=== PATIENT | male | born 1985 | race African-American/Black ===

== ENCOUNTER 2017-04-19 00:59 | Emergency (ER) | payer OTHER ==
[~2017-04-19] VITALS: Ht 177.8 cm; Wt 79.4 kg
--- NOTE | ~2017-04-19 | CR230 ---
[facility] A Service of [facility] & [facility] / [facility] RADIOLOGY TEXT RESULTS PATIENT: DAMARIS TRAVIS LOCATION: [facility] : 83 UNIT #: [id number] AGE: [address]: Kain Treviño DO SEX: M ORDER DR: [id number] [facility] [address] [place], [place] [address] [id number] MR#: [id number] Acc #: [id number] NAME: DAMARIS TRAVIS : 1985 SEX: M STUDY DATE/TIME: 04/19/2017 02:07 UNIT: [facility] ROOM: STUDY DESCRIPTION: CR Shoulder Min 2 View Rt Attending Physician: Kain Treviño D.O. Ordering Physician: Faraz Kaufman M.D. Primary Care Physician: No Primary Care Physician MEDICAL IMAGING REPORT This report is preliminary unless electronic signature is present EXAM Right shoulder, 04/19 at 02:07. INDICATIONS Shoulder pain and tingling after hearing a popping sound yesterday. FINDINGS Three views of the right shoulder were obtained. There is no fracture or dislocation. There is no AC joint separation. IMPRESSION Normal right shoulder. Dictated by... Rizwan Salazar Jr., M.D. THIS IS AN ELECTRONICALLY VERIFIED REPORT Rizwan Salazar Jr., M.D. at 04/22/2017 7:13 AM IGOR/roberto carlos TD: 04/19/2017 09:48 JOB #: [id number] MEDICAL IMAGING REPORT Page 1 of 1 COPY
[~2017-04-19 00:59] MED LIST: VIBRAMYCIN100 M1 PO
== END 2017-04-19 05:26 | disposition home or self-care (01) ==
LOC: CED 00:59
DX: S43.51XA Sprain of right acromioclavicular joint, initial encounter (principal); S43.421A Sprain of right rotator cuff capsule, initial encounter; F17.200 Nicotine dependence, unspecified, uncomplicated; Z85.841 Personal history of malignant neoplasm of brain; W22.8XXA Striking against or struck by other objects, initial encounter; Y92.69 Other specified industrial and construction area as the place of occurrence of the external cause; Y93.89 Activity, other specified; Y99.0 Civilian activity done for income or pay
CPT/HCPCS: 73030; 99283